=== PATIENT | female | born 1980 | race Caucasian/White ===

== ENCOUNTER 2021-09-04 20:22 | Emergency (ER) | payer BC, MEDICAID, SELFPAY ==
[2021-09-04 20:23] VITALS: BP 112/74; PULSE 73; RESP 25; TEMP 37.2; O2SAT 95; BMI 32.8
--- NOTE | 2021-09-04 20:48 | W.ED.GENADLT ---
HPI - General Adult General: Chief complaint: Nausea/Vomiting/Diarrhea Stated complaint: N/V/ ANXIETY/ ATE WILD MUSHROOMS Time Seen by Provider: 09/04/21 20:24 History of Present Illness: HPI narrative: Patient is a 41-year-old female with no significant past medical history presents the emergency room ingesting mushrooms from 3 days ago. Patient tells me that she just took the mushroom with her family. Nobody else had any symptoms. Since this morning, patient has had abdominal bloating, generalized abdominal pain, nausea/vomiting, and diarrhea. Patient denies any melena or hematochezia. Patient has not been able tolerate anything p.o. Onset:1 day ago symptoms Duration:1 day Location:home Severity: moderate Review of Systems Narrative: Constitutional: No fever, no chills. HEENT: No vision changes CV: No chest pain, no palpitations PULM: no cough, no dyspnea. GI: +generalized abdominal pain, +N/+V/+D. : No dysuria MSKEL: No muscle pain SKIN: No new rashes, no lesions. NEURO: No headache, no focal weakness. HEME: No visible bruises PSYCH: Normal mood [facility] ED Female Reproductive History: Date of last menstrual period: 08/18/21 Physical Exam Narrative: EXAM NARRATIVE: Head: Atraumatic Eyes: PERRL, conjunctiva without injection ENT: Dry membrane moist NECK: Supple, ROM intact LUNGS: LCTAB, no crackles/rhonchi CV: RRR ABDOMEN: Soft, +mild diffuse TTP. NO guarding rebound, guarding, rigidity. No CVA tenderness to percussion. Neg Glaser/Neg McBurney's point tenderness, no suprabupic tenderness to palpation. EXTREMITY: Normal ROM SKIN: No rash or erythema NEURO: Awake and alert, no focal motor deficits PSYCH: Normal mood and affect Course Vital Signs: Vital signs: Vital Signs Temperature 99 F 09/04/21 20:23 Pulse Rate 89 09/04/21 23:27 Respiratory Rate 16 09/04/21 23:27 Blood Pressure 119/76 09/04/21 23:27 Pulse Oximetry 95 09/04/21 23:27 MDM - General Adult MDM Narrative: Medical decision making narrative: 41-year-old female with no past medical history presented to the emergency room after ingesting Ashly rel mushroom 2 days ago. Patient did also in time earlier this morning around 3 AM. On exam, patient has generalized tenderness palpation in the abdomen. No guarding or rebound tenderness. Patient appears to be dry on exam. Case was discussed with poison specialist Stephani would recommended trneding liver function. Work-up including CBC, CMP, lipase, coags are within normal. Case was discussed with poison center who informs me that this is likely benign mushroom ingestion. Intervention: IVF, zofran, GI cocktail On reassessment at 10 PM, patient is able to ambulate without any difficulty. Patient tolerated p.o. challenge in the emergency room. No longer throwing up after a trial of GI cocktail. Onset of symptoms of nausa/vomiting over 2 days, no suspicion that this is acute toxic mushroom ingestion at this time. Considered appendicitis however unlikely at this time given lack of signs and sx's to suggest appendicitis as etiology. Pt counseled that appendicitis may later develop and given appendicitis precautions and instructed to return if any development of RLQ tenderness, worsening or continued abdominal pain, or any fevers, chills, nausea, vomiting, or any other concerning signs or symptoms. Rx zofran, maalox, pepcid PRN dyspepsia Disposition: Discharge. Patient counseled regarding diagnostic impression, treatment plan. Patient given ED strict return precautions to return for continuation, worsening, or development of new symptoms. Instructed to f/u w/ PCP regarding symptoms today. Patient verbalized understanding. Patient is given strict return precaution any worsening symptoms including nausea/vomiting, dehydration, AMS, intractable pain, or new or concerning complaints. Lab Data: Labs: Lab Results 09/04/21 09/04/21 09/04/21 20:50 20:50 20:50 WBC 15.6 10^3/uL H 10 ^3/uL (4.0-10.0) RBC 4.64 10^6/uL 10^6 /uL (4.1-5.3) Hgb 14.3 g/dL g/dL (11.5-15.3) Hct 41.0 % % (37.0-47.0) MCV 88.4 fl fl (81-99) MCH 30.8 pg pg (28.0-34.0) MCHC 34.9 g/dL g/dL (30.0-36.0) RDW 12.1 % % (12.1-15.1) Plt Count 319 10^3/cmm 10^3 /cmm (130-400) MPV 10.7 fL H fL (7.4-10.4) Neut % (Auto) 88.3 % % Lymph % (Auto) 7.3 % % [place] % (Auto) 4.0 % % Eos % (Auto) 0.0 % % Baso % (Auto) 0.1 % % Neut # (Auto) 13.75 10^3/uL H 1 0^3/uL (1.8-7.7) Lymph # (Auto) 1.1 10^3/uL 10^3/ uL (0.8-4.8) [place] # (Auto) 0.6 10^3/uL 10^3/ uL (0.2-0.9) Eos # (Auto) 0.0 10^3/uL 10^3/ uL (0.0-0.8) Baso # (Auto) 0.0 10^3/uL 10^3/ uL (0.0-0.1) Nucleated RBC % (a uto) 0 % % Nucleated RBCs # 0.0 /100WBC /100W BC PT 14.00 SECONDS SEC ONDS (12.1-14.9) INR 1.05 (0.8-1.2) APTT 26.3 SECONDS SECO NDS (23.9-36.7) Sodium 132 mmol/L L mmol /L (136-145) Potassium 3.4 mmol/L L mmol /L (3.5-5.1) Chloride 94 mmol/L L mmol/ L (98-107) Carbon Dioxide 20 mmol/L L mmol/ L (22-29) Anion Gap 21.4 H (5-19) BUN 8 mg/dL mg/dL (6-20) Creatinine 0.4 mg/dL L mg/dL (0.5-0.9) GFR Calculation 177.7 mL/min H mL /min (90-130) Glucose 108 mg/dL mg/dL (65-115) Calculated Osmolal ity 273 mOsm/kg L mOs m/kg (285-295) Calcium 9.5 mg/dL mg/dL (8.5-10.5) Total Bilirubin 1.0 mg/dL mg/dL (0.15-1.2) AST 21 U/L U/L (0-32) ALT 20 U/L U/L (0-33) Alkaline Phosphata se 91 IU/L IU/L (35-105) Total Protein 7.1 g/dL g/dL (6.6-8.7) Albumin 4.6 g/dL g/dL (3.5-5.2) Globulin 2.5 g/dL g/dL (1.3-4.6) Lipase 12 U/L L U/L (13-60) Ser , Donya i-Qnt 09/04/21 20:50 WBC RBC Hgb Hct MCV MCH MCHC RDW Plt Count MPV Neut % (Auto) Lymph % (Auto) [place] % (Auto) Eos % (Auto) Baso % (Auto) Neut # (Auto) Lymph # (Auto) [place] # (Auto) Eos # (Auto) Baso # (Auto) Nucleated RBC % (a uto) Nucleated RBCs # PT INR APTT Sodium Potassium Chloride Carbon Dioxide Anion Gap BUN Creatinine GFR Calculation Glucose Calculated Osmolal ity Calcium Total Bilirubin AST ALT Alkaline Phosphata se Total Protein Albumin Globulin Lipase Ser , Donya i-Qnt 0.50 mIU/mL mIU/m L Discharge Plan Discharge Patient Disposition: Home Clinical Impression: Abdominal pain, Nausea & vomiting, Diarrhea Condition: Stable Prescriptions: New Zofran 4 mg tablet 4 mg PO TID PRN (Reason: nausea and vomiting) 4 Days Qty: 12 RF: 0 Pepcid 20 mg tablet 20 mg PO BID PRN (Reason: abdominal pain) 10 Days Qty: 20 RF: 0 Maalox Advanced 1,000-60 mg tablet,chewable 1 tab PO TID PRN (Reason: abdominal pain) 7 Days Qty: 21 RF: 0 No Action Prozac 10 mg Capsule 10 mg PO DAILY RF: 0 L-Methylfolate 15 mg capsule 15 mg PO DAILY RF: 0 Discharge Orders: Discharge ED (Routine); Ordered 09/04/21 Ordered By: Lynnette Zaragoza Referrals: Mikey,Anastasia, [facility]NAGEMENT [Primary Care Provider] - Patient Instructions: Abdominal Pain (ED) Activity Restrictions/Additional Instructions: Please come back to the emergency room if have any further issues with mushrooms. Please take your medicine as instructed. Take nausea vomiting medicine if needed. Come back if your have any signs of dehydration, worsening pain, fever/chills or any new extreme complaints. Coding Level of Care Code ED Coroner Forensic Technician for Alber Johnson
[2021-09-04] MEDS: lidocaine 2% viscous 15 ML, aluminum-mag hydrox-simethicon 30 ML, sucralfate oral liq 1 GM PO (20:49)
[2021-09-04] MEDS: famotidine 20 mg/2 mL INJ IVP (20:49)
[2021-09-04] MEDS: ondansetron 2 mg/ML SDV 2 mL 4 MG IVP (20:49)
[2021-09-04 20:57] LABS: Basophils % 0.1 %; Hemoglobin 14.3 g/dL (11.5-15.3); Lymphocytes # 1.1 10^3/uL (0.8-4.8); Lymphocytes % 7.3 %; Mean Corpuscular HGB Conc 34.9 g/dL (30.0-36.0); Mean Corpuscular Hemoglobin 30.8 pg (28.0-34.0); Mean Corpuscular Volume 88.4 fl (81-99); Mean Platelet Volume 10.7 fL (7.4-10.4); Monocytes # 0.6 10^3/uL (0.2-0.9); Neutrophils # 13.75 10^3/uL (1.8-7.7); Neutrophils % 88.3 %; Nucleated Red Blood Cells % 0 %; Platelet Count 319 10^3/cmm (130-400); Red Blood Count 4.64 10^6/uL (4.1-5.3); Red Cell Distribution Width 12.1 % (12.1-15.1); White Blood Count 15.6 10^3/uL (4.0-10.0)
[2021-09-04 21:00] VITALS: BP 112/72; PULSE 73; RESP 19; O2SAT 99
[2021-09-04 21:14] LABS: INR 1.05 (0.8-1.2); Partial Thromboplastin Time 26.3 SECONDS (23.9-36.7)
[2021-09-04 21:20] LABS: Alanine Aminotransferase 20 U/L (0-33); Albumin Level 4.6 g/dL (3.5-5.2); Alkaline Phosphatase 91 IU/L (35-105); Blood Urea Nitrogen 8 mg/dL (6-20); Calcium 9.5 mg/dL (8.5-10.5); Carbon Dioxide 20 mmol/L (22-29); Chloride 94 mmol/L (98-107); Globulin 2.5 g/dL (1.3-4.6); Glomerular Filtration Rate 177.7 mL/min (90-130); Glucose 108 mg/dL (65-115); Lipase 12 U/L (13-60); Osmolality Calculated 273 mOsm/kg (285-295); Sodium 132 mmol/L (136-145); Total Protein 7.1 g/dL (6.6-8.7)
[2021-09-04 21:31] LABS: Anion Gap 21.4 (5-19); Aspartate Amino Transferase 21 U/L (0-32); Potassium 3.4 mmol/L (3.5-5.1)
[2021-09-04] MEDS: sodium chloride 0.9% 1,000 ML 999 ML IV (21:37)
[2021-09-04 23:27] VITALS: BP 119/76; PULSE 89; RESP 16; O2SAT 95
== END 2021-09-04 23:35 | disposition home or self-care (01) ==
PROVIDERS: Emergency Provider Emergency Medicine; PCP Nurse Practitioner Family
DX: R10.9 Unspecified abdominal pain (principal); R11.2 Nausea with vomiting, unspecified; R19.7 Diarrhea, unspecified
CPT/HCPCS: 80053; 83690; 84702; 85025; 85610; 85730; 96361; 96374; 96375; 99283; J2405; J3490; J7030

== ENCOUNTER 2021-11-04 14:09 | Emergency (ER) | payer BC, MEDICAID, SELFPAY ==
[2021-11-04 14:13] VITALS: BP 116/86; PULSE 66; RESP 20; TEMP 36.7; O2SAT 96; BMI 28.3
--- NOTE | 2021-11-04 14:43 | W.ED.GENADLT ---
HPI - General Adult General: Chief complaint: Alcohol Stated complaint: ETOH Time Seen by Provider: 11/04/21 14:13 History of Present Illness: HPI narrative: CC: Alcohol Intoxication HPI: [41]yo patient w/ hx of anxiety and tubal ligation presenting to the ED with complaints of nausea/vomiting and panic attacks and hand spasms. Patient tells me her that she drank 12 beers p.m. yesterday night and this morning at 6 AM. Last menstrual period was 3 weeks ago. Report mild spotting last few days. Onset: Yesterday night Duration: ongoing Location: home Severity: mild/moderate Associated symptoms: Reports nausea and vomiting; Deny chest pain, dyspnea, rash or palpitations Review of Systems Const: Denies: fever(s) or chills Eyes: Denies: change in vision ENMT: Denies: mouth pain Card: Denies: chest pain or palpitations Resp: Denies: dyspnea or non-productive cough GI: Reports: abdominal pain, nausea and vomiting; Denies: diarrhea : Denies: dysuria Musc: Denies: extremity pain Skin/Breast: Denies: rash or new lesions Neuro: Denies: weakness in extremities Psych: Reports: other (Normal mood) Jus/Lymph: Denies: easy bruising PFSH ED PFSH: Medical History (Updated 11/04/21 @ 17:23 by Lynnette Zaragoza MD) Alcohol dependence Social History (Updated 11/04/21 @ 14:43 by Lynnette Zaragoza MD) Smoking and tobacco status: never smoked Alcohol intake: current Alcohol intake frequency: 3 or more drinks per day Female Reproductive History: Date of last menstrual period: 11/03/21 Physical Exam Const: COMMON NORMALS: alert HENMT: COMMON NORMALS: atraumatic HEAD & SCALP: atraumatic MOUTH: moist mucous membranes not abnormal Eye: COMMON NORMALS: EOMs intact bilaterally and conjunctivae normal CONJUNCTIVA: Yes conjunctivae normal Neck/C-Spine: COMMON NORMALS: full ROM and supple Resp: COMMON NORMALS: normal respiratory effort and clear to auscultation bilaterally AUSCULTATION: clear to auscultation bilaterally Cardio: COMMON NORMALS: regular rate RATE: regular rate GI: COMMON NORMALS: Soft to palpation and non-tender (Soft, no focal TTP. NO guarding rebound, guarding, rigidity. No CVA tendern) PALPATION: Yes Soft to palpation Extremity: COMMON NORMALS: full ROM Neuro: SENSORIUM/ORIENTATION: Yes alert MOTOR EXAM: No Abnormal motor strength present and Other motor observations present (no focal motor deficits) Psych: COMMON NORMALS: speech normal SPEECH: Yes normal speech MOOD & AFFECT: Yes euthymic mood Course Vital Signs: Vital signs: Vital Signs Temperature 98.0 F 11/04/21 14:13 Pulse Rate 84 11/04/21 18:57 Respiratory Rate 15 11/04/21 18:57 Blood Pressure 132/68 11/04/21 18:57 Pulse Oximetry 98 11/04/21 18:57 MDM - General Adult MDM Narrative: Medical decision making narrative: [41] yo patient w/ hx of panic attack, tubal ligation presents with N/V/abdominal pain since drinking alcohol Toxidrome Findings: Negative. No rigidity or clonus of LE ankle/knee reflexes, no diaphoresis, pupils mid-ranged equal and reactive to light, no signs of track stevens/body patches, normal bowel sounds, and bladder non-palpable/ non-distended. Unlikely intracranial bleed, opioid intoxication or coingestion, sepsis, hypothyroidism. Suspect likely transient course of intoxication with expected improvement of symptoms as patient metabolizes offending agent. Workup: CBC/CMP, Lipase, UA, HCG Lipase wnl. No focal abd tenderness to palaption. HCG noted to be positive for . Given history of tubal ligation, this is concerning for possible early ectopic . Last menstrual period was 3 weeks ago. Ultrasound not show any signs [place] [address]. She will require to come back to the emergency room in 48 to 72 hours for repeat beta test Disposition: Discharge. Patient given SRP for any new or concerning issues including headache, fever/chill, nausea/vomiting, seizures, dehydration, or any new or concerning issues. In addition, if patient has significant vaginal bleeding, pelvic pain, nausea/vomiting abdominal pain --- she is instructed to come back to the emergency room. Lab Data: Labs: Lab Results 11/04/21 11/04/21 11/04/21 14:50 15:35 15:35 WBC Cancelled Corrected WBC Cancelled RBC Cancelled Hgb Cancelled Hct Cancelled MCV Cancelled MCH Cancelled MCHC Cancelled RDW Cancelled Plt Count Cancelled MPV Cancelled Gran % Cancelled Neut % (Auto) Cancelled Lymph % (Auto) Cancelled [place] % (Auto) Cancelled Eos % (Auto) Cancelled Baso % (Auto) Cancelled Neut # (Auto) Cancelled Lymph # (Auto) Cancelled [place] # (Auto) Cancelled Eos # (Auto) Cancelled Baso # (Auto) Cancelled Absolute Gran (aut o) Cancelled Nucleated RBC % (a uto) Cancelled Nucleated RBCs # Cancelled Sodium Cancelled Potassium Cancelled Chloride Cancelled Carbon Dioxide Cancelled Anion Gap Cancelled BUN Cancelled Creatinine Cancelled GFR Calculation Cancelled Glucose Cancelled Calculated Osmolal ity Cancelled Calcium Cancelled Total Bilirubin Cancelled AST Cancelled ALT Cancelled Alkaline Phosphata se Cancelled Total Protein Cancelled Albumin Cancelled Globulin Cancelled Lipase Cancelled HCG, Qual Ser , Donya i-Qnt Urine Color Cancelled Urine Appearance Cancelled Urine pH Cancelled Ur Specific Gravit y Cancelled Urine Protein Cancelled Urine Glucose (UA) Cancelled Urine Ketones Cancelled Urine Blood Cancelled Urine Nitrate Cancelled Urine Bilirubin Cancelled Prot Sulfosalicyli c Acd Cancelled Urine Urobilinogen Cancelled Ur Leukocyte Magdalene ase Cancelled Urine RBC Cancelled Urine WBC Cancelled Ur Squamous Epith Cells Cancelled Ur Transition Epit h Cell Cancelled Ur Renal Epithelia l Cell Cancelled Calcium Oxalate Cr ystal Cancelled Uric Acid Crystals Cancelled Triple Phos Cris ls Cancelled Other Crystals Cancelled Amorphous Sediment Cancelled Urine Bacteria Cancelled Hyaline Casts Cancelled Fine Granular Cast s Cancelled Coarse Granular Ca sts Cancelled RBC Casts Cancelled Other Casts Cancelled Urine Mucus Cancelled Urine Trichomonas Cancelled Urine Yeast Cancelled Urine Sperm Cancelled Ur Oval Fat Bodies Cancelled Blood Type Rho(D) Type 11/04/21 11/04/21 11/04/21 15:35 15:35 17:03 WBC Corrected WBC RBC Hgb Hct MCV MCH MCHC RDW Plt Count MPV Gran % Neut % (Auto) Lymph % (Auto) [place] % (Auto) Eos % (Auto) Baso % (Auto) Neut # (Auto) Lymph # (Auto) [place] # (Auto) Eos # (Auto) Baso # (Auto) Absolute Gran (aut o) Nucleated RBC % (a uto) Nucleated RBCs # Sodium Potassium Chloride Carbon Dioxide Anion Gap BUN Creatinine GFR Calculation Glucose Calculated Osmolal ity Calcium Total Bilirubin AST ALT Alkaline Phosphata se Total Protein Albumin Globulin Lipase HCG, Qual Cancelled Ser , Donya i-Qnt Cancelled Urine Color Urine Appearance Urine pH Ur Specific Gravit y Urine Protein Urine Glucose (UA) Urine Ketones Urine Blood Urine Nitrate Urine Bilirubin Prot Sulfosalicyli c Acd Urine Urobilinogen Ur Leukocyte Magdalene ase Urine RBC Urine WBC Ur Squamous Epith Cells Ur Transition Epit h Cell Ur Renal Epithelia l Cell Calcium Oxalate Cr ystal Uric Acid Crystals Triple Phos Cris ls Other Crystals Amorphous Sediment Urine Bacteria Hyaline Casts Fine Granular Cast s Coarse Granular Ca sts RBC Casts Other Casts Urine Mucus Urine Trichomonas Urine Yeast Urine Sperm Ur Oval Fat Bodies Blood Type A Positive Rho(D) Type Positive Imaging Data^: Other Imaging: Radiologist's impression: [employer] [id number] ReportSigned Patient: Iliana Macdonald #: [id number]: [id number]#:[id number]/Sex: 41 / FADM Date: 11/04/21Loc: ERRoom/Bed:Attending Dr: Ordering Provider/Ordering MD: Lynnette Zaragoza MD Date of Service: 11/04/21 Procedure(s): US OB lmt with transvaginal Accession Number(s): [id number] Report Number: [id number] PROCEDURE INFORMATION: Exam: US , Limited Exam date and time: 11/04/2021 4:15 PM Age: 41 years old Clinical indication: Screening exam; Routine US, uterus; Prior surgery; Surgery date: 6+ months; Surgery type: Tubal ligation; Patient HX: PT had period last month; Additional info: Tugal ligation, now TECHNIQUE: Imaging protocol: Real-time ultrasound of the maternal uterus with image documentation. Exam focused on the clinical indication. COMPARISON: No relevant prior studies available. FINDINGS: Gestation: Negative for intrauterine , patient remains at risk for ectopic , close clinical correlation, serial beta HCG levels and follow-up ultrasound as clinically advised. MATERNAL: Ovaries appear within normal limits bilateral with color blood flow US/US OB lmt with transvaginal IMPRESSION: Negative for intrauterine , patient remains at risk for ectopic , close clinical correlation, serial beta HCG levels and follow-up ultrasound as clinically advised. Dictated By:Joe Perera MDSigned By:Joe Perera MDSigned Date/Time:11/04/21 1710DD/ 1615 Discharge Plan Discharge Patient Disposition: Home Clinical Impression: Alcohol use, , location unknown Condition: Stable Prescriptions: No Action Prozac 10 mg Capsule 10 mg PO DAILY RF: 0 L-Methylfolate 15 mg capsule 15 mg PO DAILY RF: 0 Discharge Orders: Discharge ED (Routine); Ordered 11/04/21 Ordered By: Lynnette Zaragoza Referrals: Anastasia Jensen FNP [Primary Care Provider] - Discharge Diet: Advance as tolerated Discharge Activity: Resume usual activity Patient Instructions: (ED), Alcohol Use Disorder (ED) Activity Restrictions/Additional Instructions: Please come back to the emergency room 2 to 3 days repeat ultrasound to make sure that you do not have an ectopic . Please return from drinking alcohol. Come back to the emergency room have any new concerning complaints Coding Level of Care Code ED Balancing Machine Set Up Worker for Magdalenag Fwd Exam Comprehensive
[2021-11-04 15:53] VITALS: PULSE 84
--- NOTE | 2021-11-04 16:15 | USR_ITS ---
PROCEDURE INFORMATION: Exam: US , Limited Exam date and time: 11/04/2021 4:15 PM Age: 41 years old Clinical indication: Screening exam; Routine US, uterus; Prior surgery; Surgery date: 6+ months; Surgery type: Tubal ligation; Patient HX: PT had period last month; Additional info: Tugal ligation, now TECHNIQUE: Imaging protocol: Real-time ultrasound of the maternal uterus with image documentation. Exam focused on the clinical indication. COMPARISON: No relevant prior studies available. FINDINGS: Gestation: Negative for intrauterine , patient remains at risk for ectopic , close clinical correlation, serial beta HCG levels and follow-up ultrasound as clinically advised. MATERNAL: Ovaries appear within normal limits bilateral with color blood flow US/US OB lmt with transvaginal IMPRESSION: Negative for intrauterine , patient remains at risk for ectopic , close clinical correlation, serial beta HCG levels and follow-up ultrasound as clinically advised.
[2021-11-04] MEDS: ondansetron 2 mg/ML SDV 2 mL 4 MG IVP (16:33)
[2021-11-04] MEDS: sodium chloride 0.9% 1,000 ML 999 ML IV (16:34)
[2021-11-04 18:57] VITALS: BP 132/68; PULSE 84; RESP 15; O2SAT 98
== END 2021-11-04 18:57 | disposition home or self-care (01) ==
PROVIDERS: Emergency Provider Emergency Medicine; PCP Nurse Practitioner Family
DX: O99.310 Alcohol use complicating pregnancy, unspecified trimester (principal); Z72.89 Other problems related to lifestyle; Z3A.00 Weeks of gestation of pregnancy not specified
CPT/HCPCS: 76815; 76817; 85025; 86900; 96361; 96374; 99283; J2405; J7030

== ENCOUNTER 2021-11-06 14:26 | Emergency (ER) | payer BC, MEDICAID, SELFPAY ==
[2021-11-06 14:29] VITALS: BP 113/75; PULSE 91; RESP 14; TEMP 37.3; O2SAT 93; BMI 28.7
--- NOTE | 2021-11-06 14:52 | ED_ITS ---
HPI - Female Genitourinary General: Chief complaint: OB/Uterine Contractions Stated complaint: SUPPOSED TO BE SEEN FOR ULTRASOUND Time Seen by Provider: 11/06/21 14:33 History of Present Illness: HPI Narrative: 41 year old female presents emergency room for repeat ultrasound. On arrival here reviewed her chart. And the previous notes. On initial review there is a concern for ectopic and the patient was discharged home with the advice to return for repeat ultrasound. She is having little bit of cramping and slight vaginal bleeding but is not in any significant pain at this time. See the remainder the notes below. Date of Last Menstrual Period: 11/03/21 [facility] ED PFSH: Medical History Alcohol dependence Social History Smoking and tobacco status: never smoked Alcohol intake: current Alcohol intake frequency: 3 or more drinks per day Female Reproductive History: Date of last menstrual period: 11/03/21 Course Vital Signs: Vital signs: Vital Signs Temperature 99.1 F 11/06/21 14:29 Pulse Rate 91 11/06/21 14:29 Respiratory Rate 14 11/06/21 14:29 Blood Pressure 113/75 11/06/21 14:29 Pulse Oximetry 93 11/06/21 14:29 MDM - Female MDM Narrative: Medical decision making narrative: Upon chart review initially looked at her beta-hCG from her last visit the most recent beta-hCG listed in the lab was 0.5. This result was from 09/04/2021. Rather than 11/04/21, the similarities in the dating format cause some confusion initially when I reviewed them I thought the 0.5 was from the most recent visit. I talked to the patient advised her that there is no sign that she was and we discharged her home. Was concerned about the advice given previously and reviewed the previous ER visit more closely there are no labs listed in the lab section of the chart they all come up as canceled. However in the body of the note there is a mention that the beta-hCG was 24,190. However I cannot find this resulted in the lab section of the chart associated with the visit of 11/04/2021. Went to the lab and talk to the geothermal technician they could not find it in the chart either. I asked that the blood was available from that visit 2 days ago the geothermal technician confirmed that it was I asked him to rerun his serum quantitative beta-hCG on that result.She reported a level of the 28,289. This obviously is significantly different and was very concerning. We called the patient back and asked her to return immediately. Upon her arrival here I described what I had found in the chart and how I had not noticed the dating on the September 04, 2021 result and confused it with a November 04 test. Also informed her that we had found to the blood in the lab from that November 04 visit rerun the beta-hCG on it and came up with result of 28,289. Discussed that this was very concerning for an ectopic given that the previous ultrasound did not show an intrauterine . Recommended to her that we redraw beta-hCG and repeat his serum quantitative level. Also repeat ultrasound and CBC. These things have been ordered and I have discussed the case with on-call gynecology as well as Dr. Smith. See his notes. Due to registration issues this chart is listed as discharge home even though at the end of this the patient was admitted to the ER for further evaluation as outlined above Dr. Smith will follow-up on the results and ensure proper disposition. Lab Data: Labs: Lab Results 11/04/21 15:35 Ser , Donya i-Qnt 33041.00 mIU/mL m IU/mL Discharge Plan Discharge Patient Disposition: Home Condition: Stable Prescriptions: No Action Prozac 10 mg Capsule 10 mg PO DAILY RF: 0 L-Methylfolate 15 mg capsule 15 mg PO DAILY RF: 0 Zofran 4 mg tablet 4 mg PO Q6H PRN (Reason: nausea and vomiting) Qty: 10 RF: 0 Discharge Orders: Discharge ED (Routine); Ordered 11/08/21 Ordered By: Pelon Hurt Referrals: Anastasia Jensen FNP [Primary Care Provider] - Patient Instructions: Opioid Safety Coding Level of Care Code ED Tour Consultant for Alber Johnson
--- NOTE | 2021-11-10 15:40 | DCPLANNER ---
Addendum entered by Romina Batista 12/20/21 15:39: Patient had a follow up appointment scheduled - patient cancelled the appointment. Original Note: senior software engineering manager had message to schedule a follow up appointment for patient with [facility]. senior software engineering manager called the [facility] care [facility], spoke with Jorge Luis, gave clinic patients information. senior software engineering manager was told that patients information would be printed and reviewed. Clinic will call patient with appointment information.
== END 2021-11-06 17:31 | disposition home or self-care (01) ==
PROVIDERS: Emergency Provider Family Medicine; PCP Nurse Practitioner Family
DX: N93.9 Abnormal uterine and vaginal bleeding, unspecified (principal); R89.1 Abnormal level of hormones in specimens from other organs, systems and tissues
CPT/HCPCS: 84702; 99282

== ENCOUNTER 2021-11-06 17:42 | Emergency (ER) | payer BC, MEDICAID, SELFPAY ==
[2021-11-06 18:00] VITALS: BP 120/81; PULSE 83; RESP 14; TEMP 37.2; O2SAT 96; BMI 28.3
--- NOTE | 2021-11-06 18:04 | USR_ITS ---
US/US pelvic limited [id number] PROCEDURE INFORMATION: Exam: US ; Follow up Exam date and time: 11/06/2021 6:04 PM Age: 41 years old Clinical indication: complicated by abdominal or pelvic pain; Right lower quadrant; First trimester (<14 weeks 0 days); Gestational age or lmp: 3w1d; ; Additional info: + hcg, no iup found prevouis. Pelvic pain TECHNIQUE: Imaging protocol: Transabdominal ultrasound of the uterus, real time with image documentation. Follow-up (eg, re-evaluation of size by measuring standard growth parameters and amniotic fluid volume, re-evaluation of organ system(s) suspected or confirmed to be abnormal on a previous scan). COMPARISON: US OB limited [id number] 11/04/2021 4:25 PM FINDINGS: Gestation: Intrauterine gestation not visualized. IMPRESSION: No evidence for intrauterine gestation.
[2021-11-06 19:46] LABS: Basophils # 0.1 10^3/uL (0.0-0.1); Basophils % 0.5 %; Eosinophils % 0.2 %; Hematocrit 46.1 % (37.0-47.0); Hemoglobin 15.8 g/dL (11.5-15.3); Lymphocytes # 3.3 10^3/uL (0.8-4.8); Lymphocytes % 29.2 %; Mean Corpuscular HGB Conc 34.3 g/dL (30.0-36.0); Mean Corpuscular Volume 90.4 fl (81-99); Mean Platelet Volume 10.1 fL (7.4-10.4); Monocytes # 0.8 10^3/uL (0.2-0.9); Neutrophils # 7.19 10^3/uL (1.8-7.7); Neutrophils % 62.9 %; Nucleated Red Blood Cells % 0 %; Platelet Count 360 10^3/cmm (130-400); Red Cell Distribution Width 11.8 % (12.1-15.1); White Blood Count 11.4 10^3/uL (4.0-10.0)
[2021-11-06 19:53] LABS: Protein Urine Neg (Negative); Specific Gravity, Urine 1.015 (1.005-1.030); Urine Appearance Clear (CLEAR); Urine Color Yellow (Yellow); pH Urine 6.5 (5-7)
[2021-11-06 19:54] LABS: Add Urine Microscopic? YES; Bilirubin Urine 1+ (Negative); Blood Urine Trace (Negative); Glucose Urine UA Norm (Normal); Ketones Urine 1+ (Negative); Leukocyte Esterase Urine Negative (Negative); Nitrate Urine Negative (Negative); Urobilinogen Urine 4 mg/dL (Negative)
[2021-11-06 19:57] LABS: Add Urine Culture? No; Bacteria Urine 1+ /hpf; Mucus Urine 4+ /hpf; WBC Urine 0-4 /hpf (0-5)
[2021-11-06 20:13] LABS: Alanine Aminotransferase 34 U/L (0-33); Albumin Level 4.8 g/dL (3.5-5.2); Alkaline Phosphatase 96 IU/L (35-105); Anion Gap 18.9 (5-19); Aspartate Amino Transferase 29 U/L (0-32); Blood Urea Nitrogen 8 mg/dL (6-20); Calcium 10.2 mg/dL (8.5-10.5); Carbon Dioxide 27 mmol/L (22-29); Chloride 86 mmol/L (98-107); Glomerular Filtration Rate 137.4 mL/min (90-130); Glucose 93 mg/dL (65-115); Osmolality Calculated 266 mOsm/kg (285-295); Sodium 129 mmol/L (136-145); Total Bilirubin 0.6 mg/dL (0.15-1.2); Total Protein 7.8 g/dL (6.6-8.7)
[2021-11-06 20:15] LABS: Potassium 2.9 mmol/L (3.5-5.1)
--- NOTE | 2021-11-06 20:44 | W.ED.PREGNAN ---
HPI - General: Chief complaint: OB/Uterine Contractions Stated complaint: Time Seen by Provider: 11/06/21 18:21 History of Present Illness: HPI Narrative: 41-year-old female who was seen a couple of days ago. She had complained of pelvic pain and vomiting. Evidently, a serum quantitative test showed an elevated level. It was reported at 24,000. It was not resulted in the computer. Another physician saw her as well but noted that she had a negative serum and November. She continues to have pelvic pain and vomiting. Ultrasound 2 days ago was negative for an intrauterine . She was called to return to the emergency room given an elevated serum quantitative hCG level without a documented intrauterine by ultrasound MD Complaint: abdominal pain Onset (ago): day(s) Pain Consistency: intermittent Location: pelvis Quality: Cramping Radiation: pelvis Relieving factors: movement Exacerbating factors: none Vaginal bleeding: light Date of Last Menstrual Period: 11/03/21 OB History - Current : other care: none Associated symptoms: Reports abdominal pain and vomiting; Deny dysuria or vaginal discharge Review of Systems Const: Denies: fever(s) or chills GI: Reports: abdominal pain and vomiting : Denies: dysuria or vaginal discharge PFS ED PFSH: Medical History (Updated 11/06/21 @ 20:50 by Joel Smith DO) Alcohol dependence Social History (Updated 11/04/21 @ 14:43 by Lynnette Zaragoza MD) Smoking and tobacco status: never smoked Alcohol intake: current Alcohol intake frequency: 3 or more drinks per day Female Reproductive History: Date of last menstrual period: 11/03/21 Physical Exam Const: COMMON NORMALS: no acute distress and patient oriented x3 GENERAL APPEARANCE: cooperative, comfortable and well kempt HENMT: COMMON NORMALS: normocephalic HEAD & SCALP: normocephalic Chest: COMMONS NORMALS: normal inspection of the chest Resp: COMMON NORMALS: normal respiratory effort Cardio: COMMON NORMALS: regular rate RATE: regular rate Neuro: COMMON NORMALS: patient oriented x3 Psych: APPEARANCE: Yes well kempt Course Consultations: Consultation #1: Chris Time: 20:45 Vital Signs: Vital signs: Vital Signs Temperature 98.9 F 11/06/21 18:00 Pulse Rate 69 11/06/21 21:04 Respiratory Rate 16 11/06/21 21:04 Blood Pressure 102/68 11/06/21 21:04 Pulse Oximetry 97 11/06/21 21:04 MDM - OB/Uterine Contractions MDM Narrative: Medical decision making narrative: White blood cell count is down to 11.4. Hemoglobin is 15.8. Her potassium level is 2.9. The patient states she has a history of low potassium level, and has been vomiting. This is repleted. Repeat ultrasound of the pelvis was ordered on a limited basis. It shows no evidence of pelvic free fluid, no IUP, and no pelvic mass. Her serum beta hCG is 0.5 she was counseled on her test results. She is relieved that she is not , and does not have an ectopic . We did speak with gynecology on-call, and she would like to see the patient in follow-up as an outpatient given the fact that she has been spotting, having pelvic pain, and some vomiting. She will be treated symptomatically. Lab Data: Labs: Lab Results 11/06/21 11/06/21 11/06/21 19:34 19:34 19:34 WBC 11.4 10^3/uL H 10 ^3/uL (4.0-10.0) RBC 5.10 10^6/uL 10^6 /uL (4.1-5.3) Hgb 15.8 g/dL H g/dL (11.5-15.3) Hct 46.1 % % (37.0-47.0) MCV 90.4 fl fl (81-99) MCH 31.0 pg pg (28.0-34.0) MCHC 34.3 g/dL g/dL (30.0-36.0) RDW 11.8 % L % (12.1-15.1) Plt Count 360 10^3/cmm 10^3 /cmm (130-400) MPV 10.1 fL fL (7.4-10.4) Neut % (Auto) 62.9 % % Lymph % (Auto) 29.2 % % Cochran % (Auto) 7.0 % % Eos % (Auto) 0.2 % % Baso % (Auto) 0.5 % % Neut # (Auto) 7.19 10^3/uL 10^3 /uL (1.8-7.7) Lymph # (Auto) 3.3 10^3/uL 10^3/ uL (0.8-4.8) Cochran # (Auto) 0.8 10^3/uL 10^3/ uL (0.2-0.9) Eos # (Auto) 0.0 10^3/uL 10^3/ uL (0.0-0.8) Baso # (Auto) 0.1 10^3/uL 10^3/ uL (0.0-0.1) Nucleated RBC % (a uto) 0 % % Nucleated RBCs # 0.0 /100WBC /100W BC Sodium 129 mmol/L L mmol /L (136-145) Potassium 2.9 mmol/L L mmol /L (3.5-5.1) Chloride 86 mmol/L L mmol/ L (98-107) Carbon Dioxide 27 mmol/L mmol/L (22-29) Anion Gap 18.9 (5-19) BUN 8 mg/dL mg/dL (6-20) Creatinine 0.5 mg/dL mg/dL (0.5-0.9) GFR Calculation 137.4 mL/min H mL /min (90-130) Glucose 93 mg/dL mg/dL (65-115) Calculated Osmolal ity 266 mOsm/kg L mOs m/kg (285-295) Calcium 10.2 mg/dL mg/dL (8.5-10.5) Total Bilirubin 0.6 mg/dL mg/dL (0.15-1.2) AST 29 U/L U/L (0-32) ALT 34 U/L H U/L (0-33) Alkaline Phosphata se 96 IU/L IU/L (35-105) Total Protein 7.8 g/dL g/dL (6.6-8.7) Albumin 4.8 g/dL g/dL (3.5-5.2) Globulin 3.0 g/dL g/dL (1.3-4.6) Ser , Donya i-Qnt 0.50 mIU/mL mIU/m L Urine Color Yellow (Yellow) Urine Appearance Clear (CLEAR) Urine pH 6.5 (5-7) Ur Specific Gravit y 1.015 (1.005-1.030) Urine Protein Neg (Negative) Urine Glucose (UA) Norm (Normal) Urine Ketones 1+ H (Negative) Urine Blood Trace H (Negative) Urine Nitrate Negative (Negative) Urine Bilirubin 1+ H (Negative) Urine Urobilinogen 4 mg/dL H mg/dL (Negative) Ur Leukocyte Magdalene ase Negative (Negative) Urine RBC 5-10 /hpf H /hpf (0-2) Urine WBC 0-4 /hpf H /hpf (0-5) Ur Squamous Epith Cells 10-15 /hpf H /hpf (0-5) Amorphous Sediment Not Reportable Urine Bacteria 1+ /hpf H /hpf (NONE) Urine Mucus 4+ /hpf /hpf Discharge Plan Discharge Patient Disposition: Home Clinical Impression: Pelvic pain, Hypokalemia Condition: Stable Prescriptions: New Zofran 4 mg tablet 4 mg PO Q6H PRN (Reason: nausea and vomiting) Qty: 10 RF: 0 No Action Prozac 10 mg Capsule 10 mg PO DAILY RF: 0 L-Methylfolate 15 mg capsule 15 mg PO DAILY RF: 0 Discharge Orders: Discharge ED (Routine); Ordered 11/06/21 Ordered By: Joel Smith Referrals: Zoraida Perez DO [Physician] - 1-3 days Jensen,ROSIBEL Oconnor [Primary Care Provider] - 1-3 days Patient Instructions: Hypokalemia (ED), Pelvic Pain (ED), Vomiting - Adult Activity Restrictions/Additional Instructions: Return for fever, worsening vaginal bleeding, vomiting liquids or medications despite treatment, any other concerning symptoms. A case management referral has been placed for you an appointment with the women[facility] health clinic. Gynecology has asked that she follow-up there this coming week. If you do not hear from them by Monday, dial [phone] during normal business hours and ask for the ER child welfare caseworker. Coding Level of Care Code ED Scheduling Representative for Alber Johnson
[2021-11-06] MEDS: potassium chloride ER 20 mEq Tablet 40 MEQ PO (21:03)
[2021-11-06 21:04] VITALS: BP 102/68; PULSE 69; RESP 16; O2SAT 97
== END 2021-11-06 21:05 | disposition home or self-care (01) ==
PROVIDERS: Emergency Provider Emergency Medicine; PCP Nurse Practitioner Family
DX: R10.2 Pelvic and perineal pain (principal); E87.6 Hypokalemia
CPT/HCPCS: 76857; 80053; 81001; 84702; 85025; 99283

== ENCOUNTER 2021-11-07 12:03 | Emergency (ER) | payer BC, MEDICAID, SELFPAY ==
[2021-11-07 12:13] VITALS: BP 129/69; PULSE 58; RESP 16; TEMP 36.4; O2SAT 99; BMI 28.3
[2021-11-07 14:40] LABS: Alanine Aminotransferase 33 U/L (0-33); Albumin Level 4.4 g/dL (3.5-5.2); Alkaline Phosphatase 90 IU/L (35-105); Aspartate Amino Transferase 27 U/L (0-32); Blood Urea Nitrogen 9 mg/dL (6-20); Calcium 9.9 mg/dL (8.5-10.5); Carbon Dioxide 21 mmol/L (22-29); Chloride 94 mmol/L (98-107); Glomerular Filtration Rate 177.7 mL/min (90-130); Glucose 100 mg/dL (65-115); Lipase 11 U/L (13-60); Osmolality Calculated 281 mOsm/kg (285-295); Sodium 136 mmol/L (136-145); Total Bilirubin 0.8 mg/dL (0.15-1.2); Total Protein 7.4 g/dL (6.6-8.7)
[2021-11-07 14:47] LABS: Anion Gap 24.4 (5-19); Potassium 3.4 mmol/L (3.5-5.1)
[2021-11-07 14:59] LABS: Blood Urine 3+ (Negative); Glucose Urine UA Norm (Normal); Ketones Urine 3+ (Negative); Protein Urine Trace (Negative); Specific Gravity, Urine 1.015 (1.005-1.030); Urine Appearance Clear (CLEAR); Urine Color Dark Yellow (Yellow); pH Urine 9 (5-7)
[2021-11-07 15:00] LABS: Bilirubin Urine 1+ (Negative); Nitrate Urine Negative (Negative); Sulfosalicylic Acid Urine Positive (Negative)
[2021-11-07 15:01] LABS: Add Urine Culture? Yes; Add Urine Microscopic? YES; Bacteria Urine TRACE /hpf; Leukocyte Esterase Urine 1+ (Negative); Mucus Urine 1+ /hpf; RBC Urine 0-4 /hpf (0-2); Urobilinogen Urine 1 mg/dL (Negative); WBC Urine 0-4 /hpf (0-5)
--- NOTE | 2021-11-07 15:14 | ED_ITS ---
Documented by User: Danica Hopkins PA-C 11/07/21 16:46 HPI - General: Chief complaint: OB/Uterine Contractions Stated complaint: N/V SPOTTING, FEVER Time Seen by Provider: 11/07/21 15:16 Source: patient Mode of arrival: ambulatory Limitations: no limitations History of Present Illness: HPI Narrative: 41-year-old female presents to the ER today for nausea and vomiting x 1 week. Patient reports she has been to the ER multiple times this week. Patient reports she was told at 1 point she was and needed an ultrasound to rule out an ectopic however then she was told she was not . Patient reports she left the ER yesterday thinking she was not however is very confused. She reports continued nausea and vomiting and fatigue. Patient reports some diffuse mild abdominal discomfort but no pain. Patient reports vaginal bleeding and describes it as spotting. Patient reports she has had a tubal in the past. Patient has not taken any home tests. Patient is also concerned that she might have a liver problem or be jaundiced. She tried eating a banana this morning due to low potassium however reports she threw it up. Patient denies any headache, fever, chills, chest pain, shortness of breath, diarrhea, constipation. MD Complaint: abdominal pain (mild; diffuse) Onset (ago): week(s) Pain Consistency: intermittent Severity: moderate Severity scale (1-10): 5 Quality: Cramping Date of Last Menstrual Period: 11/03/21 Hx Last Menstrual Period: pt spotting Patient : No (unknown) Associated symptoms: Reports nausea and vomiting Review of Systems General: Reports: 10 or more systems reviewed and unremarkable except in HPI and below GI: Reports: nausea and vomiting PFSH ED PFSH: Medical History Alcohol dependence Social History Smoking and tobacco status: never smoked Alcohol intake: current Alcohol intake frequency: 3 or more drinks per day Female Reproductive History: Date of last menstrual period: 11/03/21 Physical Exam Const: COMMON NORMALS: no acute distress, average body habitus and patient oriented x3 GENERAL APPEARANCE: cooperative and comfortable HENMT: COMMON NORMALS: normocephalic, Normal nasal mucous membranes and turbinates present, moist oral mucous membranes and oropharynx normal HEAD & SCALP: normocephalic NOSE: Normal nasal mucous membranes and turbinates present Neck/C-Spine: COMMON NORMALS: full ROM and no lymphadenopathy Resp: COMMON NORMALS: normal respiratory effort and No retractions EFFORT & INSPECTION: Yes able to speak in complete sentences Cardio: COMMON NORMALS: regular rate and regular rhythm RATE: regular rate RHYTHM: regular rhythm GI: COMMON NORMALS: Normal to inspection, nondistended, normoactive bowel soun ds present and Soft to palpation PALPATION: Yes Soft to palpation and Yes Tenderness to palpation present (GI) (mild epigastric tenderness to palpation) Back/Pelvis: THORACIC SPINE/UPPER BACK: Yes thoracic ROM normal LUMBAR SPINE/LOWER BACK: Yes lumbar ROM normal Extremity: COMMON NORMALS: normal to inspection and full ROM Neuro: COMMON NORMALS: patient oriented x3, moves all extremities, no sensory deficits noted and gait normal Psych: COMMON NORMALS: cooperative and speech normal SPEECH: Yes normal speech MOOD & AFFECT: Yes anxious Skin: COMMON NORMALS: no rashes or lesions noted GENERAL SKIN EXAM: no rashes or lesions noted Course ED course: Patient presents to the ER today for nausea and vomiting x1 week. Patient reports she has been told she was but also told she was not and is confused. Patient has been to the ER multiple times in the last several days. We will do lab work at this time as she also has concern for liver failure and jaundice. We will also do urine and beta hCG. Depending on results of test we will do CT abdomen versus ultrasound. Reevaluation(s): Reevaluation #1: Pt resting comfortably at this time. Care transferred to Buffy Montalvo PA-C. Waiting on gallbladder US at this time. Time: 16:46 Vital Signs: Vital signs: Vital Signs Temperature 97.5 F L 11/07/21 12:13 Pulse Rate 58 L 11/07/21 12:13 Respiratory Rate 16 11/07/21 12:13 Blood Pressure 129/69 11/07/21 12:13 Pulse Oximetry 99 11/07/21 12:13 MDM - OB/Uterine Contractions Lab Data: Labs: Lab Results 11/07/21 11/07/21 11/07/21 14:03 14:03 14:03 WBC Cancelled Corrected WBC Cancelled RBC Cancelled Hgb Cancelled Hct Cancelled MCV Cancelled MCH Cancelled MCHC Cancelled RDW Cancelled Plt Count Cancelled MPV Cancelled Gran % Cancelled Neut % (Auto) Cancelled Lymph % (Auto) Cancelled Bladen % (Auto) Cancelled Eos % (Auto) Cancelled Baso % (Auto) Cancelled Neut # (Auto) Cancelled Lymph # (Auto) Cancelled Bladen # (Auto) Cancelled Eos # (Auto) Cancelled Baso # (Auto) Cancelled Absolute Gran (aut o) Cancelled Nucleated RBC % (a uto) Cancelled Nucleated RBCs # Cancelled Sodium 136 mmol/L mmol/L (136-145) Potassium 3.4 mmol/L L mmol /L (3.5-5.1) Chloride 94 mmol/L L mmol/ L (98-107) Carbon Dioxide 21 mmol/L L mmol/ L (22-29) Anion Gap 24.4 H (5-19) BUN 9 mg/dL mg/dL (6-20) Creatinine 0.4 mg/dL L mg/dL (0.5-0.9) GFR Calculation 177.7 mL/min H mL /min (90-130) Glucose 100 mg/dL mg/dL (65-115) Calculated Osmolal ity 281 mOsm/kg L mOs m/kg (285-295) Calcium 9.9 mg/dL mg/dL (8.5-10.5) Total Bilirubin 0.8 mg/dL mg/dL (0.15-1.2) AST 27 U/L U/L (0-32) ALT 33 U/L U/L (0-33) Alkaline Phosphata se 90 IU/L IU/L (35-105) Total Protein 7.4 g/dL g/dL (6.6-8.7) Albumin 4.4 g/dL g/dL (3.5-5.2) Globulin 3.0 g/dL g/dL (1.3-4.6) Lipase 11 U/L L U/L (13-60) Ser , Donya i-Qnt 0.50 mIU/mL mIU/m L Urine Color Urine Appearance Urine pH Ur Specific Gravit y Urine Protein Urine Glucose (UA) Urine Ketones Urine Blood Urine Nitrate Urine Bilirubin Prot Sulfosalicyli c Acd Urine Urobilinogen Ur Leukocyte Magdalene ase Urine RBC Urine WBC Ur Squamous Epith Cells Amorphous Sediment Urine Bacteria Urine Mucus Urine HCG, Qual 11/07/21 11/07/21 11/07/21 14:22 14:22 16:13 WBC 14.0 10^3/uL H 10 ^3/uL (4.0-10.0) Corrected WBC RBC 4.71 10^6/uL 10^6 /uL (4.1-5.3) Hgb 14.8 g/dL g/dL (11.5-15.3) Hct 41.8 % % (37.0-47.0) MCV 88.7 fl fl (81-99) MCH 31.4 pg pg (28.0-34.0) MCHC 35.4 g/dL g/dL (30.0-36.0) RDW 11.7 % L % (12.1-15.1) Plt Count 333 10^3/cmm 10^3 /cmm (130-400) MPV 10.1 fL fL (7.4-10.4) Gran % Neut % (Auto) 88.4 % % Lymph % (Auto) 8.0 % % Bladen % (Auto) 2.9 % % Eos % (Auto) 0.0 % % Baso % (Auto) 0.3 % % Neut # (Auto) 12.40 10^3/uL H 1 0^3/uL (1.8-7.7) Lymph # (Auto) 1.1 10^3/uL 10^3/ uL (0.8-4.8) Bladen # (Auto) 0.4 10^3/uL 10^3/ uL (0.2-0.9) Eos # (Auto) 0.0 10^3/uL 10^3/ uL (0.0-0.8) Baso # (Auto) 0.0 10^3/uL 10^3/ uL (0.0-0.1) Absolute Gran (aut o) Nucleated RBC % (a uto) 0 % % Nucleated RBCs # 0.0 /100WBC /100W BC Sodium Potassium Chloride Carbon Dioxide Anion Gap BUN Creatinine GFR Calculation Glucose Calculated Osmolal ity Calcium Total Bilirubin AST ALT Alkaline Phosphata se Total Protein Albumin Globulin Lipase Ser , Donya i-Qnt Urine Color Dark yellow (Yellow) Urine Appearance Clear (CLEAR) Urine pH 9 H (5-7) Ur Specific Gravit y 1.015 (1.005-1.030) Urine Protein Trace (Negative) Urine Glucose (UA) Norm (Normal) Urine Ketones 3+ H (Negative) Urine Blood 3+ H (Negative) Urine Nitrate Negative (Negative) Urine Bilirubin 1+ H (Negative) Prot Sulfosalicyli c Acd Positive (Negative) Urine Urobilinogen 1 mg/dL H mg/dL (Negative) Ur Leukocyte Magdalene ase 1+ H (Negative) Urine RBC 0-4 /hpf H /hpf (0-2) Urine WBC 0-4 /hpf H /hpf (0-5) Ur Squamous Epith Cells 5-10 /hpf H /hpf (0-5) Amorphous Sediment Not Reportable Urine Bacteria Trace /hpf /hpf (NONE) Urine Mucus 1+ /hpf /hpf Urine HCG, Qual Negative (Negative) Critical Care Time Critical Care Time: Critical Care Time: No Discharge Plan Discharge Patient Disposition: Home Clinical Impression: Nonspecific abdominal pain Nausea & vomiting Qualifiers: Vomiting type: unspecified Qualified Code(s): R11.2 - Nausea with vomiting, unspecified Condition: Stable Prescriptions: No Action Prozac 10 mg Capsule 10 mg PO DAILY RF: 0 L-Methylfolate 15 mg capsule 15 mg PO DAILY RF: 0 Zofran 4 mg tablet 4 mg PO Q6H PRN (Reason: nausea and vomiting) Qty: 10 RF: 0 Discharge Orders: Discharge ED (Routine); Ordered 11/07/21 Ordered By: Buffy Montalvo Referrals: Anastasia Jensen FNP [Primary Care Provider] - Patient Instructions: Abdominal Pain (ED) Sign Out Sign Out Data: Patient Sign Out occurred on 11/07/21 at 16:59. Patient's care was discussed, and care was transferred from to SOLANGE Pinzon. Coding Level of Care Code ED Kosher Dietary Service Supervisor for Chg Fwd Exam Comprehensive Documented by User: SOLANGE Pinzon 11/07/21 17:23 HPI - General: Chief complaint: OB/Uterine Contractions Stated complaint: N/V SPOTTING, FEVER Time Seen by Provider: 11/07/21 15:16 [facility] ED PFS: Medical History Alcohol dependence Social History Smoking and tobacco status: never smoked Alcohol intake: current Alcohol intake frequency: 3 or more drinks per day Course Vital Signs: Vital signs: Vital Signs Temperature 97.5 F L 11/07/21 12:13 Pulse Rate 58 L 11/07/21 12:13 Respiratory Rate 16 11/07/21 12:13 Blood Pressure 129/69 11/07/21 12:13 Pulse Oximetry 99 11/07/21 12:13 MDM - OB/Uterine Contractions MDM Narrative: Medical decision making narrative: Patient is a 41-year-old female here for complaints of nausea, vomiting, and vague right-sided abdominal/pelvic pains. This makes patient's third visit to our ED. On the first visit she was found to have an elevated serum quant without any evidence for an IUP on ultrasound. She was instructed to return the following day where she had a negative quant. Lab error was thought to be the cause of this. US pelvic exams on both previous visits were normal. Again today she has a negative serum quant. She has a mild white count of 14.0. Remainder of labs are fairly unremarkable. She does have 3+ blood on her UA. She does complain of vaginal spotting. She has been referred to women's health for further evaluation of the spotting and pelvic pain. US gallbladder today ordered from previous provider was negative. I did go in and speak to patient myself. She complains of vague nonspecific pains to the right side of her abdomen as well as some right-sided back pain. She states nausea and vomiting seems to come in waves and is worse with eating. She gained significant relief of her nausea after Zofran. She was written a prescription for this yesterday. I did discuss I did discuss with patient how I would recommend CT imaging given her third ED visit and her complaints of flank and abdominal pain but patient states she would just like to wait it out . Patient was instructed to monitor symptoms closely and she needs to return to the ED for severe worsening pains. Patient verbalized understanding and agrees with plan. Lab Data: Labs: Lab Results 11/07/21 11/07/21 11/07/21 14:03 14:03 14:03 WBC Cancelled Corrected WBC Cancelled RBC Cancelled Hgb Cancelled Hct Cancelled MCV Cancelled MCH Cancelled MCHC Cancelled RDW Cancelled Plt Count Cancelled MPV Cancelled Gran % Cancelled Neut % (Auto) Cancelled Lymph % (Auto) Cancelled Bladen % (Auto) Cancelled Eos % (Auto) Cancelled Baso % (Auto) Cancelled Neut # (Auto) Cancelled Lymph # (Auto) Cancelled Bladen # (Auto) Cancelled Eos # (Auto) Cancelled Baso # (Auto) Cancelled Absolute Gran (aut o) Cancelled Nucleated RBC % (a uto) Cancelled Nucleated RBCs # Cancelled Sodium 136 mmol/L mmol/L (136-145) Potassium 3.4 mmol/L L mmol /L (3.5-5.1) Chloride 94 mmol/L L mmol/ L (98-107) Carbon Dioxide 21 mmol/L L mmol/ L (22-29) Anion Gap 24.4 H (5-19) BUN 9 mg/dL mg/dL (6-20) Creatinine 0.4 mg/dL L mg/dL (0.5-0.9) GFR Calculation 177.7 mL/min H mL /min (90-130) Glucose 100 mg/dL mg/dL (65-115) Calculated Osmolal ity 281 mOsm/kg L mOs m/kg (285-295) Calcium 9.9 mg/dL mg/dL (8.5-10.5) Total Bilirubin 0.8 mg/dL mg/dL (0.15-1.2) AST 27 U/L U/L (0-32) ALT 33 U/L U/L (0-33) Alkaline Phosphata se 90 IU/L IU/L (35-105) Total Protein 7.4 g/dL g/dL (6.6-8.7) Albumin 4.4 g/dL g/dL (3.5-5.2) Globulin 3.0 g/dL g/dL (1.3-4.6) Lipase 11 U/L L U/L (13-60) Ser , Donya i-Qnt 0.50 mIU/mL mIU/m L Urine Color Urine Appearance Urine pH Ur Specific Gravit y Urine Protein Urine Glucose (UA) Urine Ketones Urine Blood Urine Nitrate Urine Bilirubin Prot Sulfosalicyli c Acd Urine Urobilinogen Ur Leukocyte Magdalene ase Urine RBC Urine WBC Ur Squamous Epith Cells Amorphous Sediment Urine Bacteria Urine Mucus Urine HCG, Qual 11/07/21 11/07/21 11/07/21 14:22 14:22 16:13 WBC 14.0 10^3/uL H 10 ^3/uL (4.0-10.0) Corrected WBC RBC 4.71 10^6/uL 10^6 /uL (4.1-5.3) Hgb 14.8 g/dL g/dL (11.5-15.3) Hct 41.8 % % (37.0-47.0) MCV 88.7 fl fl (81-99) MCH 31.4 pg pg (28.0-34.0) MCHC 35.4 g/dL g/dL (30.0-36.0) RDW 11.7 % L % (12.1-15.1) Plt Count 333 10^3/cmm 10^3 /cmm (130-400) MPV 10.1 fL fL (7.4-10.4) Gran % Neut % (Auto) 88.4 % % Lymph % (Auto) 8.0 % % Bladen % (Auto) 2.9 % % Eos % (Auto) 0.0 % % Baso % (Auto) 0.3 % % Neut # (Auto) 12.40 10^3/uL H 1 0^3/uL (1.8-7.7) Lymph # (Auto) 1.1 10^3/uL 10^3/ uL (0.8-4.8) Bladen # (Auto) 0.4 10^3/uL 10^3/ uL (0.2-0.9) Eos # (Auto) 0.0 10^3/uL 10^3/ uL (0.0-0.8) Baso # (Auto) 0.0 10^3/uL 10^3/ uL (0.0-0.1) Absolute Gran (aut o) Nucleated RBC % (a uto) 0 % % Nucleated RBCs # 0.0 /100WBC /100W BC Sodium Potassium Chloride Carbon Dioxide Anion Gap BUN Creatinine GFR Calculation Glucose Calculated Osmolal ity Calcium Total Bilirubin AST ALT Alkaline Phosphata se Total Protein Albumin Globulin Lipase Ser , Donya i-Qnt Urine Color Dark yellow (Yellow) Urine Appearance Clear (CLEAR) Urine pH 9 H (5-7) Ur Specific Gravit y 1.015 (1.005-1.030) Urine Protein Trace (Negative) Urine Glucose (UA) Norm (Normal) Urine Ketones 3+ H (Negative) Urine Blood 3+ H (Negative) Urine Nitrate Negative (Negative) Urine Bilirubin 1+ H (Negative) Prot Sulfosalicyli c Acd Positive (Negative) Urine Urobilinogen 1 mg/dL H mg/dL (Negative) Ur Leukocyte Magdalene ase 1+ H (Negative) Urine RBC 0-4 /hpf H /hpf (0-2) Urine WBC 0-4 /hpf H /hpf (0-5) Ur Squamous Epith Cells 5-10 /hpf H /hpf (0-5) Amorphous Sediment Not Reportable Urine Bacteria Trace /hpf /hpf (NONE) Urine Mucus 1+ /hpf /hpf Urine HCG, Qual Negative (Negative) Imaging Data^: US gallbladder: Radiologist's impression: [facility] [id number] ReportSigned Patient: Iliana Macdonald #: [id number]: 1980Acct#:[id number]/Sex: 41 / FADM Date: 11/07/21Loc: ERRoom/Bed:Attending Dr: Ordering Provider/Ordering MD: Danica Hopkins Date of Service: 11/07/21 Procedure(s): US gall bladder [id number] Accession Number(s): [id number] Report Number: [id number] PROCEDURE INFORMATION: Exam: US Abdomen, Limited; Right Upper Quadrant Exam date and time: 11/07/2021 3:47 PM Age: 41 years old Clinical indication: Abdominal pain; Additional info: Abdominal pain, n/v TECHNIQUE: Imaging protocol: US abdomen. Real time ultrasound with image documentation. Limited exam focused on the right upper quadrant. COMPARISON: US pelvic limited [id number] 11/06/2021 6:24 PM FINDINGS: Liver: Normal. No masses. Gallbladder: Normal. No gallstones. There is no gallbladder wall thickening. Common bile duct: The common bile duct measures 4 mm within normal limits. Pancreas: Visualized pancreas is unremarkable. Right kidney: Right kidney measures 11.5 cm in length. No mass. No hydronephrosis. US/US gall bladder [id number] IMPRESSION: No acute findings. Dictated By:Humphrey Fernandez DOSigned By:Humphrey Fernandez DOSigned Date/Time:11/07/21 1706DD/ 1547 Discharge Plan Discharge Patient Disposition: Home Clinical Impression: Nonspecific abdominal pain Nausea & vomiting Qualifiers: Vomiting type: unspecified Qualified Code(s): R11.2 - Nausea with vomiting, unspecified Condition: Stable Prescriptions: No Action Prozac 10 mg Capsule 10 mg PO DAILY RF: 0 L-Methylfolate 15 mg capsule 15 mg PO DAILY RF: 0 Zofran 4 mg tablet 4 mg PO Q6H PRN (Reason: nausea and vomiting) Qty: 10 RF: 0 Discharge Orders: Discharge ED (Routine); Ordered 11/07/21 Ordered By: Buffy Montalvo Referrals: Anastasia Jensen FNP [Primary Care Provider] - Patient Instructions: Abdominal Pain (ED) Sign Out Sign Out Data: Patient Sign Out occurred on 11/07/21 at 16:59. Patient's care was discussed, and care was transferred from to SOLANGE Pinzon. Coding Level of Care Code ED Kosher Dietary Service Supervisor for Chg Fwd Exam Comprehensive Documented by User: Joel Smith, 11/07/21 18:57 HPI - General: Chief complaint: OB/Uterine Contractions Stated complaint: N/V SPOTTING, FEVER Time Seen by Provider: 11/07/21 15:16 PFSH ED PFSH: Medical History Alcohol dependence Social History Smoking and tobacco status: never smoked Alcohol intake: current Alcohol intake frequency: 3 or more drinks per day Course Vital Signs: Vital signs: Vital Signs Temperature 97.5 F L 11/07/21 12:13 Pulse Rate 58 L 11/07/21 12:13 Respiratory Rate 16 11/07/21 12:13 Blood Pressure 129/69 11/07/21 12:13 Pulse Oximetry 99 11/07/21 12:13 MDM - OB/Uterine Contractions MDM Narrative: Medical decision making narrative: This patient was originally seen by ROSIBEL Thorne. I agree with her history, evaluation, and treatment. Lab Data: Labs: Lab Results 11/07/21 11/07/21 11/07/21 14:03 14:03 14:03 WBC Cancelled Corrected WBC Cancelled RBC Cancelled Hgb Cancelled Hct Cancelled MCV Cancelled MCH Cancelled MCHC Cancelled RDW Cancelled Plt Count Cancelled MPV Cancelled Gran % Cancelled Neut % (Auto) Cancelled Lymph % (Auto) Cancelled Bladen % (Auto) Cancelled Eos % (Auto) Cancelled Baso % (Auto) Cancelled Neut # (Auto) Cancelled Lymph # (Auto) Cancelled Bladen # (Auto) Cancelled Eos # (Auto) Cancelled Baso # (Auto) Cancelled Absolute Gran (aut o) Cancelled Nucleated RBC % (a uto) Cancelled Nucleated RBCs # Cancelled Sodium 136 mmol/L mmol/L (136-145) Potassium 3.4 mmol/L L mmol /L (3.5-5.1) Chloride 94 mmol/L L mmol/ L (98-107) Carbon Dioxide 21 mmol/L L mmol/ L (22-29) Anion Gap 24.4 H (5-19) BUN 9 mg/dL mg/dL (6-20) Creatinine 0.4 mg/dL L mg/dL (0.5-0.9) GFR Calculation 177.7 mL/min H mL /min (90-130) Glucose 100 mg/dL mg/dL (65-115) Calculated Osmolal ity 281 mOsm/kg L mOs m/kg (285-295) Calcium 9.9 mg/dL mg/dL (8.5-10.5) Total Bilirubin 0.8 mg/dL mg/dL (0.15-1.2) AST 27 U/L U/L (0-32) ALT 33 U/L U/L (0-33) Alkaline Phosphata se 90 IU/L IU/L (35-105) Total Protein 7.4 g/dL g/dL (6.6-8.7) Albumin 4.4 g/dL g/dL (3.5-5.2) Globulin 3.0 g/dL g/dL (1.3-4.6) Lipase 11 U/L L U/L (13-60) Ser , Donya i-Qnt 0.50 mIU/mL mIU/m L Urine Color Urine Appearance Urine pH Ur Specific Gravit y Urine Protein Urine Glucose (UA) Urine Ketones Urine Blood Urine Nitrate Urine Bilirubin Prot Sulfosalicyli c Acd Urine Urobilinogen Ur Leukocyte Magdalene ase Urine RBC Urine WBC Ur Squamous Epith Cells Amorphous Sediment Urine Bacteria Urine Mucus Urine HCG, Qual 11/07/21 11/07/21 11/07/21 14:22 14:22 16:13 WBC 14.0 10^3/uL H 10 ^3/uL (4.0-10.0) Corrected WBC RBC 4.71 10^6/uL 10^6 /uL (4.1-5.3) Hgb 14.8 g/dL g/dL (11.5-15.3) Hct 41.8 % % (37.0-47.0) MCV 88.7 fl fl (81-99) MCH 31.4 pg pg (28.0-34.0) MCHC 35.4 g/dL g/dL (30.0-36.0) RDW 11.7 % L % (12.1-15.1) Plt Count 333 10^3/cmm 10^3 /cmm (130-400) MPV 10.1 fL fL (7.4-10.4) Gran % Neut % (Auto) 88.4 % % Lymph % (Auto) 8.0 % % Bladen % (Auto) 2.9 % % Eos % (Auto) 0.0 % % Baso % (Auto) 0.3 % % Neut # (Auto) 12.40 10^3/uL H 1 0^3/uL (1.8-7.7) Lymph # (Auto) 1.1 10^3/uL 10^3/ uL (0.8-4.8) Bladen # (Auto) 0.4 10^3/uL 10^3/ uL (0.2-0.9) Eos # (Auto) 0.0 10^3/uL 10^3/ uL (0.0-0.8) Baso # (Auto) 0.0 10^3/uL 10^3/ uL (0.0-0.1) Absolute Gran (aut o) Nucleated RBC % (a uto) 0 % % Nucleated RBCs # 0.0 /100WBC /100W BC Sodium Potassium Chloride Carbon Dioxide Anion Gap BUN Creatinine GFR Calculation Glucose Calculated Osmolal ity Calcium Total Bilirubin AST ALT Alkaline Phosphata se Total Protein Albumin Globulin Lipase Ser , Donya i-Qnt Urine Color Dark yellow (Yellow) Urine Appearance Clear (CLEAR) Urine pH 9 H (5-7) Ur Specific Gravit y 1.015 (1.005-1.030) Urine Protein Trace (Negative) Urine Glucose (UA) Norm (Normal) Urine Ketones 3+ H (Negative) Urine Blood 3+ H (Negative) Urine Nitrate Negative (Negative) Urine Bilirubin 1+ H (Negative) Prot Sulfosalicyli c Acd Positive (Negative) Urine Urobilinogen 1 mg/dL H mg/dL (Negative) Ur Leukocyte Magdalene ase 1+ H (Negative) Urine RBC 0-4 /hpf H /hpf (0-2) Urine WBC 0-4 /hpf H /hpf (0-5) Ur Squamous Epith Cells 5-10 /hpf H /hpf (0-5) Amorphous Sediment Not Reportable Urine Bacteria Trace /hpf /hpf (NONE) Urine Mucus 1+ /hpf /hpf Urine HCG, Qual Negative (Negative) Discharge Plan Discharge Patient Disposition: Home Clinical Impression: Nonspecific abdominal pain Nausea & vomiting Qualifiers: Vomiting type: unspecified Qualified Code(s): R11.2 - Nausea with vomiting, unspecified Condition: Stable Prescriptions: No Action Prozac 10 mg Capsule 10 mg PO DAILY RF: 0 L-Methylfolate 15 mg capsule 15 mg PO DAILY RF: 0 Zofran 4 mg tablet 4 mg PO Q6H PRN (Reason: nausea and vomiting) Qty: 10 RF: 0 Discharge Orders: Discharge ED (Routine); Ordered 11/07/21 Ordered By: Buffy Montalvo Referrals: Jensen,ROSIBEL Oconnor [Primary Care Provider] - Patient Instructions: Abdominal Pain (ED) Sign Out Sign Out Data: Patient Sign Out occurred on 11/07/21 at 16:59. Patient's care was discussed, and care was transferred from to SOLANGE Pinzon. Coding Level of Care Code ED Kosher Dietary Service Supervisor for Magdalenag Fwd Exam Comprehensive
[2021-11-07] MEDS: ondansetron 4 MG Tablet PO (15:29)
--- NOTE | 2021-11-07 15:47 | USR_ITS ---
PROCEDURE INFORMATION: Exam: US Abdomen, Limited; Right Upper Quadrant Exam date and time: 11/07/2021 3:47 PM Age: 41 years old Clinical indication: Abdominal pain; Additional info: Abdominal pain, n/v TECHNIQUE: Imaging protocol: US abdomen. Real time ultrasound with image documentation. Limited exam focused on the right upper quadrant. COMPARISON: US pelvic limited [id number] 11/06/2021 6:24 PM FINDINGS: Liver: Normal. No masses. Gallbladder: Normal. No gallstones. There is no gallbladder wall thickening. Common bile duct: The common bile duct measures 4 mm within normal limits. Pancreas: Visualized pancreas is unremarkable. Right kidney: Right kidney measures 11.5 cm in length. No mass. No hydronephrosis. US/US gall bladder [id number] IMPRESSION: No acute findings.
[2021-11-07 16:17] LABS: Basophils % 0.3 %; Hematocrit 41.8 % (37.0-47.0); Hemoglobin 14.8 g/dL (11.5-15.3); Lymphocytes # 1.1 10^3/uL (0.8-4.8); Mean Corpuscular HGB Conc 35.4 g/dL (30.0-36.0); Mean Corpuscular Hemoglobin 31.4 pg (28.0-34.0); Mean Corpuscular Volume 88.7 fl (81-99); Mean Platelet Volume 10.1 fL (7.4-10.4); Monocytes # 0.4 10^3/uL (0.2-0.9); Monocytes % 2.9 %; Neutrophils % 88.4 %; Nucleated Red Blood Cells % 0 %; Platelet Count 333 10^3/cmm (130-400); Red Blood Count 4.71 10^6/uL (4.1-5.3); Red Cell Distribution Width 11.7 % (12.1-15.1)
--- NOTE | 2021-11-07 17:33 | PC.NURSE ---
patient discharged home with friend, verbalizes understanding of all instructions and follow up, pt ambulates from ED with all belongings
== END 2021-11-07 17:34 | disposition home or self-care (01) ==
PROVIDERS: Physician Assistant; Emergency Provider Physician Assistant; PCP Nurse Practitioner Family
DX: R10.9 Unspecified abdominal pain (principal); R11.2 Nausea with vomiting, unspecified
CPT/HCPCS: 76705; 80053; 81001; 81025; 83690; 84702; 85025; 87086; 99283; Q0162

== ENCOUNTER 2023-03-02 10:23 | Outpatient (CLI) | payer BC, MEDICAID, SELFPAY | END 2023-03-02 10:24 | disposition home or self-care (01) | PROVIDERS: PCP Nurse Practitioner Family; Visit Provider Obstetrics & Gynecology | DX: Z01.419 Encounter for gynecological examination (general) (routine) without abnormal findings (principal) | CPT/HCPCS: 87624 ==

== ENCOUNTER → 2023-04-13 14:12 | Outpatient (BNVA) | payer BC, MEDICAID, SELFPAY | PROVIDERS: PCP Nurse Practitioner Family; Visit Provider Obstetrics & Gynecology | DX: N93.9 Abnormal uterine and vaginal bleeding, unspecified (principal); N94.10 Unspecified dyspareunia | CPT/HCPCS: 76830; 84443; 85025 ==

== ENCOUNTER 2023-04-18 13:54 | Day surgery (SDC) | payer BC, MEDICAID, SELFPAY ==
[2023-04-18] VITALS (9 sets, daily range): BP systolic 96–119; BP diastolic 57–80; PULSE 52–102; RESP 16–19; TEMP 36.2–36.6; O2SAT 95–100
[2023-04-18] MEDS: sodium chloride 0.9% 1,000 ML 30 ML IV (14:25)
--- NOTE | 2023-04-18 14:33 | W.PM.OPSUD ---
Surgery/Procedure H&P Update DATE OF PROCEDURE: April 18, 2023 DATE H&P PERFORMED: 04/17/23 H&P UPDATE INFORMATION: I have reviewed H&P completed within last 30 days, I have examined patient prior to procedure and No changes to prior documentation PREOP DIAGNOSIS: AUB, endometrial mass PLANNED PROCEDURE: Operation Date: 04/18/23 14:30 Proposed Procedures p Hysteroscopy, dilation and curettage with Myosure [id number],N93.9(Not Applicable) - Diamond Mondragon MD s Dilation And Curettage (D&C)(Not Applicable) - Diamond Mondragon MD Related Problem List Diagnoses (1) Endometrial mass: (2) Abnormal uterine bleeding (AUB):
--- NOTE | 2023-04-18 14:45 | ANES.PREANE2 ---
Pre-Anesthetic Assessment Height/Weight: Height 1.6 m Weight 72.575 kg O2 Del Method Room Air 04/18/23 14:20 Preop Diagnosis: AUB, endometrial mass Operation Date: 04/18/23 14:30 Proposed Procedures p Hysteroscopy, dilation and curettage with Myosure [id number],N93.9(Not Applicable) - Diamond Mondragon MD s Dilation And Curettage (D&C)(Not Applicable) - Diamond Mondragon MD Familial anesthetic complications: none Was Beta April taken within 24 hours: N/A Was Clonidine taken within 24 hours: N/A Last intake: Intake Last Liquid Date 04/18/23 Last Liquid Time 08:00 Last Solid Date 04/17/23 Last Solid Time 23:30 Last Intake: 08:00 Social Tobacco and No alcohol Exam alert and oriented x 3 Airway Submandibular: within normal limits Cervical ROM: within normal limits Mallampati: Class I Dentition: full History/ROS No significant complaints Anesthetic Plan ASA status: 2 Anesthesia: Anesthesia Evaluation and General Risk of > 500 ml blood loss (7ml/kg in children): No Medications/Allergies Home Medications Medication Instructions Recorded Confirmed Last Taken Type L-Methylfolate 15 mg PO DAILY 09/04/21 04/18/23 04/17/23 History cholecalciferol (vitamin D3) 10 10 mcg PO DAILY 03/02/23 04/18/23 04/17/23 History mcg (400 unit) capsule fluticasone propionate 50 1 spray intranasal DAILY 03/02/23 04/18/23 1 Month Ago History mcg/actuation nasal ~03/18/23 spray,suspension Allergies Allergy/AdvReac Type Severity Reaction Status Date / Time butorphanol [From Stadol] Allergy ALGY-Hives Verified 04/18/23 14:11 Current Medications Generic Name Dose Route Start Last Admin Trade Name Freq PRN Reason Stop Dose Admin Sodium Chloride 1,000 mls @ 30 mls/hr 04/18/23 14:15 04/18/23 14:25 Sodium Chloride 0.9% IV 04/19/23 14:14 30 mls/hr .Q24H ABRAM Administration PFSH Anesthesia Medical History Alcohol dependence Family History Grandmother Heart disease Hypertension Mother Heart disease Hypertension Ovarian cancer Grandfather Heart disease Hypertension Sister Thyroid disease Denies family history of Colon cancer Diabetes Breast cancer Uterine cancer Stroke Female Reproductive History Date of last menstrual period: 04/13/23 Data Anesthesia Cardiac Studies: No Data to Display
[2023-04-18] MEDS: ceFAZolin 2,000 MG in sodium chloride 0.9% (plus) 50 ML 100 MG IV (14:48)
--- NOTE | 2023-04-18 15:27 | P.OP_ITS ---
Operative Report Date of procedure: April 18, 2023 Pre-op diagnosis: Preop Diagnosis AUB, endometrial mass Post-op diagnosis: same Post-op findings: 8 weeks sized uterus with anterior mass consistent with fibroid Procedure done: hysteroscopy, d&c with myosure Specimens removed/disposition: endometrial curettings to pathology Surgeon: Diamond Mondragon Anesthesia: General Estimated blood loss (mL): 2 IV fluids (mL): 400 Complications: none Findings: hysteroscopy deficit 5 ml Condition: stable Disposition: PACU Procedure: The patient was taken to the operating room where monitored anesthesia was administered and to be adequate. She was prepped and draped in the normal sterile fashion in the dorsal lithotomy position in [facility]. A weighted speculum was placed into the vagina and the anterior lip of the cervix grasped with a single-tooth tenaculum. The uterus was sounded to 8 cm. The cervix was dilated to 16 Kinyarwanda. The hysteroscope was advanced into the endometrial cavity. There was an anterior mass, consistent with fibroid visualized. The MyoSure device was activated and the tissue was removed. Pictures were taken pre and post procedure. All instruments were removed. The patient tolerated the procedure well. Sponge lap and needle counts were correct x3. She was julienne en to the recovery room in stable condition.
--- NOTE | 2023-04-18 15:35 | PM.DCS ---
Discharge Providers Date of Admission: 04/18/23 Date of Discharge: April 18, 2023 Attending Provider at Admission: Dr. Mondragon Attending Provider at Discharge: Diamond Mondragon MD Primary Care Provider: ROSIBEL Witt Diagnoses at Discharge Discharge Diagnosis (1) Endometrial mass: Status: Acute (2) Abnormal uterine bleeding (AUB): Status: Acute Reason for Visit Reason for Visit: N93.9 Hospital Course Hospital Course The patient was admitted for surgery. She did well postop and was ready for discharge. Discharge Data Studies Completed and Pending Pending at discharge Category Date Time Status Pathology: Surgical [PTH] Routine Pth 04/18/23 15:16 Ordered Vitals Last Vital Signs O2 Del Method Room Air 04/18/23 14:20 Discharge Plan Discharge Patient Disposition: Home Condition: Stable Prescriptions: Continued fluticasone propionate 50 mcg/actuation spray,suspension 1 spray intranasal DAILY Rx Instructions: administer into each nostril cholecalciferol (vitamin D3) 10 mcg (400 unit) capsule 10 mcg PO DAILY L-Methylfolate 15 mg capsule 15 mg PO DAILY Discharge Orders: Discharge Order (Routine); Ordered 04/18/23 Ordered By: Diamond Mondragon Discharge Attestations Time Spent in Discharge Care*: less than 30 min Quality Metrics Clinical Quality Measures [ No reported AMI, CVA or VTE this stay] Coding Level of Care Code Acute Code for Chg Fwd Diagnoses Endometrial mass N94.89 Abnormal uterine bleeding (AUB) N93.9
--- NOTE | 2023-04-18 17:12 | ANE.PACU2 ---
Inpatient post-anesthesia follow up: Airway intact: Yes Vital signs: Temperature 97.6 F Pulse Rate 66 Respiratory Rate 16 Blood Pressure 105/59 Pulse Oximetry 98 Oxygen Delivery Me thod Room Air Oxygen Flow Rate Fraction of Inspir ed Oxygen Hydration adequate: Yes Nausea and vomiting: No Pain level: 3 Mental status: Baseline
== END 2023-04-18 16:35 | disposition home or self-care (01) ==
PROVIDERS: PCP Nurse Practitioner Family; Visit Provider Obstetrics & Gynecology
PROC: 0UDB8ZZ Extraction of Endometrium, Via Natural or Artificial Opening Endoscopic (ICD-10-PCS; CPT 58558; principal; 2023-04-18 14:20)
PROC: (CPT 58120; 2023-04-18 14:20)
DX: N80.00 Endometriosis of the uterus, unspecified (principal); N93.8 Other specified abnormal uterine and vaginal bleeding; F17.210 Nicotine dependence, cigarettes, uncomplicated
CPT/HCPCS: 58558; 88305; J0690; J2250; J2704; J3010; J7030

== ENCOUNTER 2024-03-27 18:26 | Emergency (ER) | payer BC, MEDICAID, SELFPAY ==
[2024-03-27 18:27] VITALS: BP 101/59; PULSE 79; RESP 14; TEMP 36.6; O2SAT 100
--- NOTE | 2024-03-27 18:35 | W.ED.LOWEXIN ---
HPI - Extremity Injury (Lower) General: Chief Complaint: Extremity Injury, Lower Stated Complaint: right nance injury Time Seen by Provider: 03/27/24 18:27 Source: patient Mode of arrival: ambulatory Limitations: no limitations History of Present Illness: Patient is a 43-year-old female presents to ED today with a complaint of right anterior nance pain that she has had over the past month ever since she ran the nance into a trailer hitch. She states initially after incident she had a large area of ecchymosis to the leg which has resolved. She is left with continued tenderness to the anterior aspect of her upper nance. She is ambulatory on the extremity without any difficulty. No calf pain or leg swelling. MD complaint: leg injury Onset (ago): month(s) (approx. one month ago) Type of Injury: blunt Place: home Severity: moderate Relieving factors: immobilization Exacerbating factors: palpation Context: direct blow Associated symptoms: Reports no associated symptoms Other symptoms: none Review of Systems Musc: Reports: extremity pain; Denies: extremity swelling PFSH ED PFSH: Medical History Alcohol dependence Family History Grandmother Heart disease Hypertension Mother Heart disease Hypertension Ovarian cancer Grandfather Heart disease Hypertension Sister Thyroid disease Denies family history of Colon cancer Diabetes Breast cancer Uterine cancer Stroke Physical Exam Const: COMMON NORMALS: no acute distress, no limitations, healthy appearing and well nourished Extremity: COMMON NORMALS: normal to inspection, full ROM, capillary refill normal, no joint enlargement, no clubbing, cyanosis or edema, no calf tenderness and no pedal edema GENERAL: Yes normal exam except as noted RIGHT LOWER EXTREMITY: Yes lower leg (TTP bony upper nance/tibia; no edema/swelling noted) Neuro: COMMON NORMALS: moves all extremities, no focal motor deficits and no sensory deficits noted Course Vital Signs: Vital signs: Vital Signs Temperature 97.9 F 03/27/24 18:27 Pulse Rate 79 03/27/24 18:27 Respiratory Rate 14 03/27/24 18:27 Blood Pressure 101/59 03/27/24 18:27 Pulse Oximetry 100 03/27/24 18:27 Oxygen Delivery Me thod Room Air 03/27/24 18:27 MDM - Extremity Injury (Lower) Medical Decision Making XR negative. Most likely continued discomfort related to a tibial contusion. No concern for DVT or other emergent etiology. Medical Records I reviewed the patient's medical records. XR interpretation done by ED provider, pending radiology final review Discharge Plan Discharge Patient Disposition: Home Clinical Impression: Contusion of right tibia Condition: Stable Prescriptions: No Action cholecalciferol (vitamin D3) 10 mcg (400 unit) capsule 10 mcg PO DAILY multivitamin Tablet 1 tab PO DAILY Adult 50 Plus Probiotic 4 billion cell capsule PO L-Methylfolate 15 mg capsule 15 mg PO DAILY Discharge Orders: Discharge ED (Routine); Ordered 03/27/24 Ordered By: Buffy Montalvo Referrals: Anastasia Jensen FNP [Primary Care Provider] - Coding Level of Care Code ED Sports Medicine Coordinator for Alber Johnson
--- NOTE | 2024-03-27 18:37 | XRR_ITS ---
PROCEDURE INFORMATION: Exam: XR Right Tibia and Fibula Exam date and time: 03/27/2024 6:46 PM Age: 43 years old Clinical indication: Injury or trauma; Other: See below; Blunt trauma; Lower leg; Right; Injury details: Hit leg on trailer to[place]et TECHNIQUE: Imaging protocol: Radiologic exam of the right tibia and fibula. Views: 2 views. COMPARISON: No relevant prior studies available. FINDINGS: Bones/joints: Normal. Soft tissues: Normal. XR/XR tibia fibula RT 2V [id number] IMPRESSION: No acute findings.
== END 2024-03-27 19:00 | disposition home or self-care (01) ==
PROVIDERS: Emergency Provider Physician Assistant; PCP Nurse Practitioner Family
DX: S80.11XA Contusion of right lower leg, initial encounter (principal); W22.09XA Striking against other stationary object, initial encounter
CPT/HCPCS: 73590; 99283

== ENCOUNTER 2024-04-02 09:53 | Outpatient (CLI) | payer BC, MEDICAID, SELFPAY ==
--- NOTE | 2024-04-02 10:03 | XR_ITS ---
WS: [id number] XR cervical spine min 6V [id number] REASON FOR EXAM: CERVICALGIA FINDINGS: Straightening of the normal lordosis of the cervical spine. No vertebral body abnormality. Normal odontoid. Moderate narrowing of the C5-C6 C6-C7 and C7-T1 disc spaces with moderate anterior and uncinate osteo phytosis. There is 2 mm of anterolisthesis of C4 in relation to C5. There is 2 mm of anterolisthesis of C7 in relation to C6. The listheses are not significantly altered by flexion or extension. No other abnormal vertebral body movement noted. Mild bony encroachment on the neural foramina bilaterally at C5-C7. XR/XR cervical spine min 6V [id number] IMPRESSION: Multilevel degenerative spondylosis as above.
== END 2024-04-02 09:54 | disposition home or self-care (01) ==
LOC: RAD 09:55
PROVIDERS: PCP Nurse Practitioner Family; Visit Provider Nurse Practitioner Family
DX: M54.12 Radiculopathy, cervical region (principal); M47.812 Spondylosis without myelopathy or radiculopathy, cervical region; M48.02 Spinal stenosis, cervical region
CPT/HCPCS: 72052

== ENCOUNTER → 2024-04-18 09:17 | Outpatient (BNVA) | payer MEDICAID, SELFPAY | PROVIDERS: PCP Nurse Practitioner Family; Visit Provider Orthopaedic Surgery | DX: M54.2 Cervicalgia (principal); M47.22 Other spondylosis with radiculopathy, cervical region | CPT/HCPCS: 72050; 99204 ==

== ENCOUNTER → 2024-05-14 10:03 | Outpatient (CLI) | payer MEDICAID, SELFPAY ==
--- NOTE | 2024-05-14 10:15 | MR_ITS ---
WS: [id number] MRI CERVICAL SPINE NONCONTRAST HISTORY: neck pain COMPARISON: None available. Technique: Multiplanar, multisequence noncontrast imaging of the cervical spine. Mild RIGHT curvature cervical spine. Reversal of the normal cervical lordosis centered at C5-6. Signal within the cervical cord is normal. Visualized posterior fossa is unremarkable. Craniocervical junction, C1 and C2 relationship, odontoid process and soft tissues are normal. C2-C3: Small central disc protrusion. No stenosis. C3-C4: Small LEFT foraminal osteophytes and mild LEFT foraminal stenosis with bilateral facet arthrit is, LEFT greater than RIGHT. C4-C5: Mild disc bulging with a central disc protrusion. Mild to moderate bilateral facet arthritis. No significant stenosis. C5-C6: Diffuse annular disc bulging with osteophytic ridging and a small central disc protrusion. Mod erate bilateral facet arthritis. Mild central with moderate bilateral foraminal stenosis due to disc osteophyte disease. C6-C7: Osteophytic ridging and mild annular disc bulging with facet joint arthritis. Central disc pro trusion. Moderate central with moderate bilateral foraminal stenosis due to disc osteophyte disease. C7-T1: Normal. Paravertebral soft tissues contain indeterminate bilateral cervical chain lymph nodes. Lymph nodes at level 2 measure up to 11 mm. MR/MR cervical spin wo con* [id number] IMPRESSION: 1. Degenerative RIGHT scoliosis and reversal of the normal cervical lordosis c entered at C5-6. 2. Advanced degenerative disc disease and marrow edema from C5-C7. 3. C2-3 Central disc protrusion. 4. Mild LEFT foraminal stenosis at C3-4. 5. C5-6: Mild central with moderate bilateral foraminal stenosis due to disc o steophyte disease. 6. C6-7: Moderate central with moderate bilateral foraminal stenosis due to di sc osteophyte disease. 7. C4-5: Small central disc protrusion with facet joint arthritis.
== END | disposition home or self-care (01) ==
LOC: RAD 10:03
PROVIDERS: PCP Nurse Practitioner Family; Visit Provider Orthopaedic Surgery
DX: M54.2 Cervicalgia (principal); M41.82 Other forms of scoliosis, cervical region; M50.21 Other cervical disc displacement, high cervical region; M50.323 Other cervical disc degeneration at C6-C7 level; M25.78 Osteophyte, vertebrae; M48.02 Spinal stenosis, cervical region; M47.892 Other spondylosis, cervical region; M50.221 Other cervical disc displacement at C4-C5 level
CPT/HCPCS: 72141